=== PATIENT | male | born 1990 | race African-American/Black ===

== ENCOUNTER 2019-05-20 04:20 | Emergency (ER) | payer OTHER, MEDICAID ==
[~2019-05-20] VITALS: Ht 188 cm; Wt 133.8 kg
[2019-05-20 04:26] VITALS: Ht 188 cm; Wt 133.8 kg
[2019-05-20 05:42] VITALS: BP 137/67
== END 2019-05-20 05:42 | disposition home or self-care (01) ==
LOC: ED 04:20
DX: J11.1 Influenza due to unidentified influenza virus with other respiratory manifestations (principal); R11.0 Nausea; Z98.890 Other specified postprocedural states
CPT/HCPCS: Q0162